=== PATIENT | male | born 1960 | race Caucasian/White ===

== ENCOUNTER 2018-07-26 07:58 | Emergency (ER) | payer BC, OTHER ==
[2018-07-26] MEDS ORDERED: ASPIRIN 81 MG CHEWABLE CTB ONE (08:03)
[2018-07-26] MEDS ORDERED: SODIUM CHLORIDE 0.9% 1000ML 1,000 ML IV ONE ×3 (08:04→11:20)
[2018-07-26 08:12] LABS: BASOPHILS % (AUTO) 1 % (0-3); EOSINOPHILS % (AUTO) 1 % (0-9); HEMATOCRIT 48 % (39-53); HEMOGLOBIN 15.5 gm/dl (13.5-17.7); LYMPHOCYTES % (AUTO) 47.2 % (10-50); MEAN CORPUSCULAR HEMOGLOBIN 30.2 pg (27.0-32.0); MEAN CORPUSCULAR HGB CONC 32.3 gm/dl (32.0-36.0); MEAN CORPUSCULAR VOLUME 93 fL (80-100); MONOCYTES % (AUTO) 10.2 % (0-12); NEUTROPHILS % (AUTO) 39.9 % (37-80)
[2018-07-26] MEDS ORDERED: ONDANSETRON HCL 4 MG/2 ML SOL IV ONE (08:19)
[2018-07-26] MEDS ORDERED: MECLIZINE HYDROCHLORIDE 12.5 MG TAB PO ONE (08:19)
[2018-07-26] MEDS ORDERED: ONDANSETRON HCL 4 MG/2 ML SOL ONE (08:21)
[2018-07-26] MEDS ORDERED: MECLIZINE HYDROCHLORIDE 12.5 MG TAB ONE (08:21)
[2018-07-26 08:24] LABS: ALBUMIN 3.5 gm/dl (3.4-5.0); ALKALINE PHOSPHATASE 63 IU/L (46-116); ALT 16 IU/L (14-63); AST 24 IU/L (15-37); BILIRUBIN,TOTAL 0.6 mg/dl (0.2-1.0); BLOOD UREA NITROGEN 19 mg/dl (7-18); CALCIUM 8.3 mg/dl (8.5-10.1); CARBON DIOXIDE 26.6 mEq/L (21-32); CHLORIDE 106 mMol/L (98-107); CREATININE 1.03 mg/dl (0.80-1.30); GLUCOSE 120 mg/dl (74-106); POTASSIUM 4.2 mMol/L (3.5-5.1); SODIUM 142 mMol/L (136-145); TOTAL PROTEIN 6.9 gm/dl (6.4-8.2); TROP I < 0.017 ng/ml (0.000-0.056)
[2018-07-26 08:29] LABS: LACTIC ACID 1.3 mMol/L (0.0-2.0)
[2018-07-26 08:38] LABS: INR 2.13 (0.86-1.12)
[2018-07-26] MEDS ORDERED: ASPIRIN EC 81 MG PO SCH (09:00)
[2018-07-26 10:43] LABS: APPEARANCE,URINE Clear; BILIRUBIN,URINE NEGATIVE (NEGATIVE); COLOR,URINE Yellow; GLUCOSE, URINE (UA) NEGATIVE (NEGATIVE); KETONES,URINE NEGATIVE (NEGATIVE); LEUKOCYTE ESTERASE ,URINE NEGATIVE (NEGATIVE); NITRATE,URINE NEGATIVE (NEGATIVE); OCCULT BLOOD,URINE NEGATIVE (NEG-TRACE); PH,URINE 5.5; UROBILINOGEN,URINE 0.2 (0.2-1.0 EU)
[2018-07-26 11:01] LABS: BACTERIA TRACE (< 1+); CRYSTALS NEGATIVE (0-3 AVE/HPF); EPITHELIAL CELLS 0-2 (SQUAMOUS); RBC,URINE NEGATIVE (0-3AV/HPF); WBC,URINE 0-2 (0-5AV/HPF)
[2018-07-26 15:36] VITALS: TEMP 97
[2018-07-26 15:41] VITALS: BP 131/78; PULSE 82; RESP 10; O2SAT 97
== END 2018-07-26 13:51 | disposition home or self-care (01) | DRG 149 ==
LOC: ED 07:58
DX: R42 Dizziness and giddiness (principal); E86.0 Dehydration; Z79.01 Long term (current) use of anticoagulants
CPT/HCPCS: 70450; 70496; 71045; 80053; 81001; 84484; 85025; 85610; 93005; 96365; 96366; 96374; 99284; 99285; J2405; Q9967; A9270-GY